=== PATIENT | female | born 1985 | race Caucasian/White ===

== ENCOUNTER 2016-08-17 11:21 | Emergency (ER) | payer OTHER ==
[2016-08-17 12:06] VITALS: BP 117/86; PULSE 108; RESP 16; TEMP 97.7; O2SAT 97
[2016-08-17 12:13] LABS: COLOR YELLOW; LEUKOCYTE ESTERASE,URINE 1+ (NEGATIVE); NITRITE,URINE NEGATIVE (NEGATIVE)
--- NOTE | 2016-08-17 12:39 | UCPHY ---
H & P Time Seen by Provider: 08/17/16 11:55 Patient Type: New HPI/ROS: This patient presents with a chief complaint of right flank pain which began suddenly at about 9 o'clock this morning. The pain is worse with movement particularly twisting. There is no radiation of the pain into the abdomen or lower extremities. She denies nausea or vomiting and also frequency, urgency, dysuria or hematuria. She denies any motor or sensory dysfunction in the lower extremities. Patient is concerned that she has a kidney stone although she has not had a stone in the past. REVIEW OF SYSTEMS: Constitutional: No fever Gastrointestinal: No nausea, vomiting, diarrhea or constipation denies abdominal pain Genitourinary: Denies frequency, urgency, dysuria, hematuria Musculoskeletal: See above Skin: No rash Neurological: No numbness, tingling or motor weakness. Smoking Status: Never smoked Physical Exam: GENERAL: Well-appearing, well-nourished and in moderate distress distress when moving HEAD: Atraumatic, normocephalic. ABDOMEN: Soft, nontender, normoactive bowel sounds. No guarding, no rebound. No masses appreciated. EXTREMITIES: Normal range of motion, no pitting or edema. No clubbing or cyanosis. NEUROLOGICAL: Cranial nerves II through XII grossly intact. Normal speech, normal gait. PSYCH: Normal mood, normal affect. SKIN: Warm, dry, normal turgor, no visible rashes or lesions. Back: I can elicit no tenderness of the right flank earlier in the sciatic notch or nerve. Straight leg raising is negative. Motor function and sensation are both intact and symmetric. Constitutional: Initial Vital Signs Temperature (C) 36.5 C 08/17/16 12:02 Heart Rate 108 H 08/17/16 12:02 Respiratory Rate 16 08/17/16 12:02 Blood Pressure 117/86 H 08/17/16 12:02 O2 Sat (%) 97 08/17/16 12:02 O2 Delivery Mode Room Air Allergies/Adverse Reactions: No Known Allergies Allergy (Unverified 08/17/16 12:01) Home Medications: Medication Instructions Recorded Allergy Pill 08/17/16 Allergy [place] 08/17/16 Control 08/17/16 CYCLOBENZAPRINE HCL [Flexeril] 5 mg PO TIDPRN PRN #15 tab 08/17/16 Thyroid 08/17/16 Medical Decision Making ED Course/Re-evaluation: This patient's urinalysis is abnormal but is more consistent with contamination them with infection especially given the history and physical findings. Differential Diagnosis: I believe that this pain is secondary to a musculoskeletal cause. I find nothing that would suggest that this is ureteral colic or pyelonephritis or an intra-abdominal problem. - Data Points Laboratory Results: 08/17/16 12:02 Urine Color YELLOW Urine Appearance CLEAR Urine pH 6.0 (5.0-7.5) Ur Specific [place] <= 1.005 (1.002-1.030) Urine Protein NEGATIVE (NEGATIVE) Urine Ketones TRACE H (NEGATIVE) Urine Blood NEGATIVE (NEGATIVE) Urine Nitrate NEGATIVE (NEGATIVE) Urine Bilirubin NEGATIVE (NEGATIVE) Urine Urobilinogen 0.2 EU EU (0.2-1.0) Ur Leukocyte Esterase 1+ H (NEGATIVE) Urine RBC 1-3 /hpf /hpf (0-3) Urine WBC 3-5 /hpf H /hpf (0-3) Ur Epithelial Cells 3+ /lpf H /lpf (NONE-1+) Urine Bacteria 1+ /hpf H /hpf (NONE SEEN) Urine Mucus 1+ /lpf /lpf (NONE-1+) Ur Culture Indicated? INDICATED H (NI) Urine Glucose NEGATIVE (NEGATIVE) Departure - Departure Disposition: Home, Routine, Self-Care Clinical Impression: Right flank pain Condition: Good Instructions: Flank Pain (ED) Additional Instructions: If your symptoms have not improved in 3 or 4 days or if they have not resolved in 10 days you should be re-evaluated. Avoid painful activities for the next 2 days. Use ice several times daily for the next 48 hours and then switch to heat. Adult Pain & Fever Control: We recommend Acetaminophen (Tylenol) and Ibuprofen (Motrin, Advil) for pain and fever control. When fever is high or pain severe, both drugs can be used at the same time, but at different intervals. Please note the time differences. Your dose is: Acetaminophen [650]mg every 4 to 6 hours ibuprofen [600]mg every [6] hours with food OR naproxen Sodium (Aleve) [440]mg every 12 hours. Note: do not take Acetaminophen with Hydrocodone (Vicodin, Lortab) or Oxycodone (Percocet). These medications also contain Acetaminophen. No more than 3000 mg of Acetaminophen should be taken in 24 hours (for an adult) . The maximal dose of ibuprofen that it is safe in a 24-hour period is 2400 mg. You may take 400 mg every 4 hours, 600 mg every 6 hours or 800 mg every 8 hours safely. Referrals: CONNIE CHERY [Primary Care Provider] - As per Instructions Prescriptions: CYCLOBENZAPRINE HCL [Flexeril] 5 mg PO TIDPRN PRN #15 tab PRN Reason: back pain - PQRS PQRS Measurement: Not applicable
[2016-08-17 12:49] LABS: BACTERIA 1+ /hpf (NONE SEEN); MUCUS 1+ /lpf (NONE-1+)
== END 2016-08-17 13:04 | disposition home or self-care (01) ==
LOC: CED 11:21 → MERGE 11:21 → CED 13:04
DX: R10.9 Unspecified abdominal pain (principal)
CPT/HCPCS: 81003-PO; 81015-PO; 99203-PO; G0463-PO